=== PATIENT | male | born 1980 | race Native Hawaiian/Other Pacific Islander ===

== ENCOUNTER 2019-02-25 11:00 | Emergency (ER) | payer BC, OTHER ==
[~2019-02-25] VITALS: Ht 165.1 cm; Wt 81.6 kg
[~2019-02-25 11:00] MED LIST: MULT1CAP34 PO
[2019-02-25] MEDS ORDERED: CLONIDINE HCL 0.2 MG TABLET PO ONE ×2 (11:15→12:30)
[2019-02-25] MEDS ORDERED: CLONIDINE HCL 0.2 MG TABLET ONE ×2 (11:41→12:23)
--- NOTE | 2019-02-25 12:55 | NUR ---
Patient discharged to home in stable conditon. Written and verbal after care instructions given. Patient verbalizes understanding of instructions.pt walks in steady gait. pt says feesl better. pt denies headache or dizziness at this time.
[2019-02-25 12:57] VITALS: BP 136/98
== END 2019-02-25 12:58 | disposition home or self-care (01) ==
LOC: ER 11:00
DX: I10 Essential (primary) hypertension (principal); Z79.899 Other long term (current) drug therapy
CPT/HCPCS: A4663

== ENCOUNTER 2019-04-02 00:07 | Emergency (ER) | payer BC, OTHER ==
[~2019-04-02] VITALS: Ht 162.6 cm; Wt 80.3 kg
[2019-04-02] MEDS ORDERED: OLMESARTAN MEDOXOMIL 20 MG TAB (00:21)
[2019-04-02] MEDS ORDERED: TDAP DIPH,PERTUSS,TET VAC/PF 0.5 ML DISP.SYRIN IM ONE ×2 (00:43→00:45)
[2019-04-02] MEDS ORDERED: AMOXICILLIN-CLAVUL 875-125MG TABLET ONE (00:43)
[2019-04-02] MEDS ORDERED: NEOMY/BACITRA/POLYMYXIN B OINT UD PACKET TP ONE (00:43)
[2019-04-02] MEDS ORDERED: AMOXICILLIN-CLAVUL 875-125MG TABLET PO ONE (00:45)
--- NOTE | 2019-04-02 00:55 | NUR ---
Patient discharged to home in stable conditon. Written and verbal after care instructions given. Patient verbalizes understanding of instructions.
== END 2019-04-02 00:56 | disposition home or self-care (01) ==
LOC: ER 00:10
DX: S61.052A Open bite of left thumb without damage to nail, initial encounter (principal); I10 Essential (primary) hypertension; Z79.899 Other long term (current) drug therapy; Y04.1XXA Assault by human bite, initial encounter; Y93.89 Activity, other specified; Y92.89 Other specified places as the place of occurrence of the external cause; Y99.8 Other external cause status
CPT/HCPCS: 90715; A4663